=== PATIENT | female | born 1955 | race Caucasian/White ===

== ENCOUNTER → 2018-12-16 | Outpatient (CLI) | payer MEDICAID ==
[~2018-12-16] VITALS: Ht 165.1 cm; Wt 63.5 kg
--- NOTE | 2018-12-16 16:47 | Diagnostic Imaging Report ---
Indication: Right thyroid nodule. Ultrasound guidance was provided for Dr. Castellano for right thyroid mass fine needle aspiration. A total of 3 passes were made by Dr. Castellano into the large solid mass in the right lobe. Impression: Ultrasound guidance for Dr. Castellano for right thyroid mass FNA. Dictated by: Dictated on workstation # [id number]
--- NOTE | 2018-12-16 16:48 | Diagnostic Imaging Report ---
INDICATION: Thyroid nodule. Thyroid sonography is performed in the routine fashion. There is no previous study available for comparison. The right thyroid lobe measures 4.2 x 2.3 x 2.5 cm. Left thyroid lobe measures 4.0 x 1.5 x 1.5 cm. On the right side, there is a dominant nodule with heterogeneous appearance and calcifications in the inferior to mid portion of the gland measuring about 3.6 x 2.5 x 2.1 cm. There is a small hypoechoic lesion in the superior portion of the gland measuring 6 x 4 x 6 mm. On the left side, there is a small hypoechoic lesion in the thyroid lobe inferiorly near the isthmus measuring 4 x 2 mm. There is a small hypoechoic lesion in the left lobe superiorly measuring 2 x 3 mm. IMPRESSION: Dominant nodule in right thyroid lobe as described above. Small hypoechoic lesions in superior portion of right thyroid lobe as well as in the left lobe. Dictated by: Dictated on workstation # [id number]
== END ==
LOC: RAD 09:47
PROVIDERS: ATTEND Otolaryngology Otolaryngology/Facial Plastic Surgery
DX: E04.1 Nontoxic single thyroid nodule (principal)
CPT/HCPCS: 76536; 76942

== ENCOUNTER → 2019-06-28 | Outpatient (CLI) | payer MEDICAID ==
--- NOTE | 2019-06-28 11:34 | Diagnostic Imaging Report ---
PROCEDURE: US Thyroid. TECHNIQUE: Multiple real-time grayscale images were obtained of the thyroid in various projections. INDICATION: Followup of thyroid nodule on the right. History of previous fine-needle aspiration under ultrasound guidance. COMPARISON: 12/16/2018. FINDINGS: There is a heterogeneous slightly hypoechoic nodule which is lobulated involving a large portion of the right lobe of the thyroid. This measures approximately 3.8 x 2.2 x 2.5 cm. There is associated rather dense calcification centrally. There is mild hypervascularity. The right lobe measures overall 5.6 x 2.6 x 2.5 cm. The left lobe measures 4.7 x 1.5 x 1.5 cm. There is a 4 mm hypoechoic mixed-density smooth-walled lesion inferiorly near the isthmus measuring 4 x 2 mm. IMPRESSION: Complex lobulated hypoechoic mass with calcification within the right lobe of the thyroid. This has increased very slightly in size since December examination. This is considered TI-RAD 4. Short-term continued surveillance is indicated. Dictated by: Dictated on workstation # [id number]
== END ==
LOC: RAD 08:52
PROVIDERS: ATTEND Otolaryngology Otolaryngology/Facial Plastic Surgery
DX: E04.2 Nontoxic multinodular goiter (principal); Z98.890 Other specified postprocedural states
CPT/HCPCS: 76536

== ENCOUNTER → 2019-12-13 | Outpatient (CLI) | payer MEDICAID ==
--- NOTE | 2019-12-13 11:43 | Diagnostic Imaging Report ---
PROCEDURE: US Thyroid. TECHNIQUE: Multiple real-time grayscale images were obtained of the thyroid in various projections. INDICATION: Right thyroid mass. Exam compared with study 06/28/2019. Right thyroid lobe is 5.5 x 2.4 x 2.8 cm unchanged from prior. There is a heterogeneous multilobular solid vascularized mass with a few coarse calcifications and small areas of cystic degeneration relatively hypoechoic in its mid pole measuring 3.6 x 2.9 x 2.2 cm. Despite the absence of any detectable change from the previous if not already performed lesional sampling of this TI-RADS 4 level lesion recommended given its size. A 2nd smaller hypoechoic nodule in the upper pole 5 mm stable. Left lobe contains a tiny 4 mm simple cyst and measured 5.0 cm maximal unchanged. IMPRESSION: Dominant heterogeneous lobular vascularized partly calcified partly cystic but predominantly solid right lobe mass 3.6 cm maximal and a ti-RADS 4 level lesion. If not already biopsied ultrasound-guided FNA recommended. Dictated by: Dictated on workstation # [id number]
== END ==
LOC: RAD 10:59
PROVIDERS: ATTEND Otolaryngology Otolaryngology/Facial Plastic Surgery
DX: E04.1 Nontoxic single thyroid nodule (principal)
CPT/HCPCS: 76536

== ENCOUNTER → 2020-01-09 | Outpatient (CLI) | payer MEDICAID ==
[~2020-01-09] MED LIST: CATHETER FLUSH 10 ML SYR IV PRN; HOLD METFORMIN - RECEIVED CONTRAST 20 ML VIAL IV SCH; IOHEXOL 350 MG/ML 100 ML (OMNIPAQUE 350) VIAL IV ONE; NS 100 ML (IVPB) BAG IV ONE
[2020-01-09 12:31] LABS: BUN/CREATININE RATIO 11; CREATININE SERUM 0.72 MG/DL (0.60-1.30); GFR ESTIMATED > 60
--- NOTE | 2020-01-09 13:25 | Diagnostic Imaging Report ---
CLINICAL INDICATION: Patient had normal right tonsil, right-sided throat swelling x4-6 months. EXAM: Axial CT scan of the neck soft tissue performed with 75 cc Omnipaque 350 IV contrast with coronal and sagittal reformatted images. Auto Exposure Controls were utilized during the CT exam to meet ALARA standards for radiation dose reduction. COMPARISON: Ultrasound of the thyroid gland dated 12/13/2019. FINDINGS: There is enlargement of the right palatine tonsil which causes mild encroachment upon the aerodigestive tract. There is a roughly 10 mm x 7 mm (AP x Trans) lobulated low-density area within the right tonsillar region concerning for abscess. There is mild fat stranding adjacent to the right palatine tonsil. There is mild prominence of the left pontine tonsillar region which is not as prominent as compared to the right side. The hypopharynx and laryngeal soft tissue structures are unremarkable. Bilateral neck lymphadenopathy is seen with the right side worse than left. There is a marker lymph node in the right level 3 region seen on series 2, image 46, which measures 1.2 cm x 1.1 cm x 1.8 cm (AP x Trans x CC). There is also mild fat stranding adjacent to this more prominent lymph node. The bilateral salivary glands are unremarkable. There is a heterogeneous 3.3 cm nodule within the right thyroid gland which has central dystrophic appearing calcification. There is emphysematous disease involving the upper lung nielsen. There is parenchymal band appearing tissue in the anterior right lung apex which may be related to scarring. There is posterior spur involving the C4-C5 level with no significant central canal narrowing. There is severe right C4-C5 neural foramina narrowing due to uncinate spurs and facet arthropathy. Limited visualization of intracranial structures show no significant abnormality. The orbits and globes are unremarkable. Paranasal sinuses are clear. There is mild to moderate mucosal thickening involving the ethmoid sinus. There is mild mucosal thickening involving both maxillary sinuses and sphenoid sinus is seen. IMPRESSION: 1: There is right palatine tonsillitis with 10 mm right peritonsillar abscess. There is mild narrowing of the aerodigestive tract region. 2: There is cervical lymphadenopathy (right side more than the left). 3: There is a 3.3 cm heterogeneous partially calcified nodule/mass in the right thyroid gland. This is better evaluated on the comparison ultrasound of the thyroid gland. Dictated by: Dictated on workstation # [id number]
== END ==
LOC: RAD 11:58
PROVIDERS: ATTEND Otolaryngology Otolaryngology/Facial Plastic Surgery
DX: J36 Peritonsillar abscess (principal); E04.1 Nontoxic single thyroid nodule; K92.89 Other specified diseases of the digestive system; R59.0 Localized enlarged lymph nodes
CPT/HCPCS: 36415; 70491; 82565; 84520

== ENCOUNTER → 2020-02-15 | Outpatient (CLI) | payer MEDICAID ==
[~2020-02-15] VITALS: Ht 165 cm; Wt 68.0 kg
[~2020-02-15] MED LIST changes: +ALBU1.25 INH; +ALPR0.5T7 PO; +ASPI-586 PO; +CELE200C PO; +DULO20CA PO; +FLUT1BLS3 IH; -HOLD METFORMIN - RECEIVED CONTRAST 20 ML VIAL IV SCH; +HYDR-3820 PO; -IOHEXOL 350 MG/ML 100 ML (OMNIPAQUE 350) VIAL IV ONE; +IPRA4AER IH; +LORA-714 PO; +NITR0.4T39 SL; -NS 100 ML (IVPB) BAG IV ONE; +PROM25TA14 PO; +REGADENOSON 0.4 MG/5 ML SYR (LEXISCAN) IV ONE; +RT-ALBUINH IH
[2020-02-15 08:58] VITALS: BP 151/84
--- NOTE | 2020-02-15 12:47 | STRESS TEST ---
DATE OF SERVICE: 02/15/2020 LEXISCAN MYOVIEW STRESS TEST REPORT REFERRING PHYSICIAN: . Baseline heart rate is 66. Baseline blood pressure is 150/80. Baseline EKG is sinus rhythm with no ischemic changes. In summary, the patient was injected with 10.89 mCi of technetium-99 Myoview and the resting images were obtained. Then, the patient received 0.4 mg of Lexiscan followed by 29.1 mCi of technetium-99 Myoview. Throughout the test, there were no EKG changes. The resting and stress images were reviewed and compared in the short axis, horizontal long axis, and vertical long axis views. Review of the images showed breast attenuation with reversible ischemia involving the whole anterior wall extending slightly to the anterior apex and inferoapical segment. SSS is 5, SDS 5. TID value 0.93. On the gated images, the left ventricle appeared to be normal size with normal contractility. Calculated ejection fraction 58%. CONCLUSION: 1. The patient tolerated Lexiscan well. 2. Breast attenuation with reversible ischemia involving the whole anterior wall, anterior apex, true apex and inferoapical segment. 3. Normal left ventricular size with normal contractility. Calculated ejection fraction 58%. Job ID: [id number] DocumentID: [id number] Dictated Date: 02/15/2020 11:23:06 Talent Coordinator Date: 02/15/2020 12:46:10 Dictated By: ROGER PRINCE MD
== END ==
LOC: CARD 07:09
PROVIDERS: ATTEND Internal Medicine Cardiovascular Disease
DX: E78.2 Mixed hyperlipidemia (principal); I25.10 Atherosclerotic heart disease of native coronary artery without angina pectoris; I10 Essential (primary) hypertension; Z72.0 Tobacco use
CPT/HCPCS: 78452; 93017; 93306

== ENCOUNTER 2020-02-20 08:54 | Outpatient (RCR) | payer MEDICAID ==
[2020-02-13 12:18] VITALS: BP 137/87
[2020-02-13 12:44] LABS: BASOPHILS % (AUTO) 0 % (0-10); EOSINOPHILS # (AUTO) 0.2 10^3/uL (0.0-0.3); EOSINOPHILS % (AUTO) 3 % (0-10); HEMATOCRIT 43 % (35-52); HEMOGLOBIN 14.5 G/DL (11.5-16.0); LYMPHOCYTES # (AUTO) 3.2 X 10^3 (1.0-4.0); LYMPHOCYTES % (AUTO) 43 % (12-44); MEAN CORPUSCULAR HEMOGLOBIN 31 PG (25-34); MEAN CORPUSCULAR HGB CONC 34 G/DL (32-36); MEAN CORPUSCULAR VOLUME 89 FL (80-99); MEAN PLATELET VOLUME 9.5 FL (7.4-10.4); MONOCYTES # (AUTO) 0.5 X 10^3 (0.0-1.0); MONOCYTES % (AUTO) 7 % (0-12); NEUTROPHILS # (AUTO) 3.5 X 10^3 (1.8-7.8); NEUTROPHILS % (AUTO) 47 % (42-75); PLATELET COUNT 272 10^3/uL (130-400); WHITE BLOOD COUNT 7.5 10^3/uL (4.3-11.0)
--- NOTE | 2020-02-13 12:51 | Diagnostic Imaging Report ---
INDICATION: Right tonsillar abscess. EXAMINATION: PA and lateral chest. FINDINGS: The heart size and pulmonary vascularity are normal. There are no infiltrates, effusions, or pneumothoraces. IMPRESSION: No acute abnormalities in the chest. Dictated by: Dictated on workstation # [id number]
[2020-02-13 13:01] LABS: BUN/CREATININE RATIO 10; CALCIUM 9.1 MG/DL (8.5-10.1); CARBON DIOXIDE 25 MMOL/L (21-32); CHLORIDE 105 MMOL/L (98-107); GFR ESTIMATED > 60; GLUCOSE 104 MG/DL (70-105); POTASSIUM 4.3 MMOL/L (3.6-5.0); SODIUM 140 MMOL/L (135-145)
[~2020-02-20] VITALS: Ht 165 cm; Wt 68.6 kg
[~2020-02-20 08:54] MED LIST changes: -CATHETER FLUSH 10 ML SYR IV PRN; -REGADENOSON 0.4 MG/5 ML SYR (LEXISCAN) IV ONE
== END 2020-02-20 16:17 | disposition home or self-care (01) ==
LOC: PREOP 08:54
PROVIDERS: ATTEND Otolaryngology Otolaryngology/Facial Plastic Surgery
DX: Z01.818 Encounter for other preprocedural examination (principal); Z01.812 Encounter for preprocedural laboratory examination; J36 Peritonsillar abscess; Z11.59 Encounter for screening for other viral diseases
CPT/HCPCS: 36415; 71046; 80048; 85025; 87081; 87635; 93005

== ENCOUNTER 2020-02-24 08:33 | Day surgery (SDC) | payer MEDICAID ==
[~2020-02-24] VITALS: Ht 165 cm; Wt 68.0 kg
[2020-02-24] VITALS (13 sets, daily range): BP systolic 118–157; BP diastolic 71–108
[2020-02-24] MEDS ORDERED: LACTATED RINGERS 1,000 ML IV PRN (08:58)
--- OUTSIDE RECORDS SUMMARY | 2020-02-24 09:12 | XMS REPORT ---
Author Author Adriane LAWSONWELL [facility] [place] [facility] Address [address] [place] [address] Care Team Providers Care Program Coordinator Name Role Phone DAVID LAWSON Unavailable PROBLEMS Type Condition ICD9-CM Code [id number] Code Onset Dates Condition S tatus SNOMED Code Problem Tobacco use disorder F17.200 Active 012773071 Problem Irritable bowel syndrome K58.9 Activ e 24258465 Problem Back pain, chronic M54.9 Active 1 05432169 Problem Hyperglycemia R73.9 May, Active 803 54855 Problem Hyperlipidemia, mixed E78.2 Active 872373351 Problem Extrinsic asthma J45.909 Active 555 17402 Problem CAD (coronary artery disease) I25.10 Active 43085501 Problem COPD (chronic obstructive pulmonary disease) J44.9 Active 80054996 Problem Tobacco abuse Z72.0 Active 108035 05 Problem Panlobular emphysema J43.1 Active 6689635 Problem Nausea alone R11.0 Active 0992629 07 Problem Migraine with aura and without status migrainosu s, not intractable G43.109 Active 4958467 Problem Anxiety F41.9 Active 29309406 Problem Mixed hyperlipidemia E78.2 Active 045029292 Problem Depression F32.9 Active 463425370 Problem Cigarette nicotine dependence F17.200 Active 934813361 Problem Irritable bowel K58.9 Active 1074 3008 Problem CA, old I25.2 Active 0923792 Problem Acid reflux K21.9 Active 81080600 2 ALLERGIES No Information ENCOUNTERS Encounter Location Date Diagnosis [facility] [id number] [place] [address] 07 Nov, 2019 Osteoarthritis M19.90 [facility] [id number] [place] [address] Oct, [facility] [address] [facility] [place] [address] Oct, [facility] [address] [place] [address] Sep, [facility] [address] [place] [address] Sep, [facility] [place] [address] [facility] [id number] [address] Aug, COPD (chronic obstructive pulmonary disease) J44.9 [facility] [address] [place] [address] Aug, Mixed hyperlipidemia E78.2 a nd Hyperglycemia R73.9 [facility] [address] [place] [address] Aug, COPD (chronic obstructive pu lmonary disease) J44.9 ; CAD (coronary artery disease) I25.10 ; Hyperglycemia R73.9 and Encounter for immunization Z23 [facility] [place] [address] [place] [address] Aug, Hyperglycemia R73.9 and Mixe d hyperlipidemia E78.2 [facility] [address] [place] [address] Aug, [address] [place] [address] Jul, [facility] [address] [place] [address] Jul, [address] [place] [address] Jun, [address] [place] [address] Jun, [address] [place] [address] Jun, Screening mammogram, encount er for Z12.31 [facility] [address] [place] [address] Jun, [facility] [place] [address] [place] [address] May, [facility] [place] [address] [place] [address] May, [facility] [place] [address] [place] [address] Apr, [facility] [place] [address] [place] [address] Apr, Screening mammogram, encount er for Z12.31 ; Anxiety F41.9 ; Panlobular emphysema J43.1 ; Migraine with aura and without status migrainosus, not intractable G43.109 and Mixed hyperlipidemia E78.2 [facility] [place] [address] [place] [address] Apr, [facility] [place] [address] [place] [address] Mar, [facility] [place] [address] [place] [address] Mar, [facility] [place] [address] [place] [address] February, [facility] [place] [address] [place] [address] February, [facility] [place] [address] [place] [address] February, [facility] [place] [address] [place] [address] February, [facility] [place] [address] [place] [address] Jan, [facility] [place] [address] [place] [address] Jan, [facility] [address] [place] [address] Dec, [facility] [place] [address] [place] [address] Dec, [facility] [place] [address] [place] [address] Dec, Hyperglycemia R73.9 ; COPD ( chronic obstructive pulmonary disease) J44.9 and Osteoarthritis M19.90 [facility] [place] [address] [place] [address] Dec, [facility] [place] [address] [place] [address] Dec, [facility] [place] [address] [place] [address] Dec, [facility] [place] [address] [place] [address] Dec, [facility] [place] [address] [place] [address] Dec, [facility] [place] [address] [place] [address] Nov, [facility] [place] [address] [place] [address] Nov, [facility] [place] [address] [place] [address] Nov, [facility] [address] [facility] [place] [address] Oct, [facility] [id number] [place] [address] Oct, [facility] [id number] [place] [address] Oct, [facility] [id number] [place] [address] Sep, [facility] [id number] [place] [address] Aug, IMMUNIZATIONS No Known Immunizations SOCIAL HISTORY Never Assessed REASON FOR VISIT med refill PLAN OF CARE VITAL SIGNS MEDICATIONS Medication Instructions Dosage Frequency Start Date End Date Duration S tatus Xanax 0.5 MG Orally Twice a day 1 tablet 12h 26 Nov, 2018 30 days Active RESULTS No Results PROCEDURES No Known procedures INSTRUCTIONS MEDICATIONS ADMINISTERED No Known Medications MEDICAL (GENERAL) HISTORY Type Description Date Medical History Extrinsic asthma Medical History COPD (chronic obstructive pulmonary dise ase) Medical History Back pain, chronic Medical History Anxiety Medical History Tobacco abuse Medical History Cigarette nicotine dependence Medical History Depression Medical History Nausea alone Medical History Acid reflux Medical History Irritable bowel Medical History CA, old Medical History CAD (coronary artery disease) Medical History Panlobular emphysema Medical History Hyperlipidemia, mixed Medical History Osteoarthritis Surgical History cholecystectomy Surgical History hysterectomy Surgical History lung resection Surgical History cardiac stent Surgical History hernia repair
--- OUTSIDE RECORDS SUMMARY | 2020-02-24 09:12 | XMS REPORT ---
Author Author Adriane LAWSONWELL Organization [facility] Address [address] [place] [address] Care Team Providers Care Railway Station Manager Name Role Phone DAVID LAWSON Unavailable PROBLEMS Type Condition ICD9-CM Code [id number] Code Onset Dates Condition S tatus SNOMED Code Problem Irritable bowel syndrome K58.9 Activ e 95855619 Problem Hyperglycemia R73.9 May, Active 803 78568 Problem Mixed hyperlipidemia E78.2 Aug, Active 326291754 Problem Anxiety state F41.1 Active 011707 003 Problem Chest pain R07.9 Mar, Active 729091 09 Problem History of myocardial infarction I25.2 Jun, Active 121732382 Problem Esophageal reflux K21.9 Active 24 8559826 Problem COPD (chronic obstructive pulmonary disease) J44.9 Active 35900770 Problem Osteoarthritis M19.90 Active 89891 5006 Problem Situational depression F43.21 Active 21616144 Problem Radicular pain of right lower extremity M54.10 Mar, Active 79572543 Problem Back pain, chronic M54.9 Active 1 14499827 Problem Extrinsic asthma, unspecified J45.909 Active 773409076 Problem Extrinsic asthma J45.909 Active 555 94072 Problem Irritable bowel K58.9 Active 1074 3008 Problem Cigarette nicotine dependence F17.200 Active 195311874 Problem Nausea alone R11.0 Active 2791957 07 Problem CAD (coronary artery disease) I25.10 Active 79580465 Problem Depression F32.9 Active 64488010 Problem Anxiety F41.9 Active 19705434 Problem [place], old I25.2 Active 8902954 Problem Osteoarthritis of multiple joints M15.9 Jan Active 930216777 Problem Migraine with aura and without status migrainosu s, not intractable G43.109 Active 3915522 Problem Tobacco use disorder F17.200 Active 746317368 Problem Backache M54.9 Active 047096923 Problem Tobacco abuse Z72.0 Active 522615 05 Problem Panlobular emphysema J43.1 Active 1156067 Problem Acid reflux K21.9 Active 86985927 2 Problem Hyperlipidemia, mixed E78.2 Active 208788787 ALLERGIES Substance Reaction Event Type Date Status PredniSONE rash Drug Allergy Dec, Active Gatifloxacin unknown Drug Allergy Dec, Active Fluticasone-Salmeterol nausea and vomiting Drug Allergy Dec, 9 Active Crestor nausea and vomiting Drug Allergy Dec, Active Lovastatin nausea and vomiting Drug Allergy Dec, Active Lipitor nausea and vomiting Drug Allergy Dec, Active Lexapro unknown Drug Allergy Dec, Active Keflex unknown Drug Allergy Dec, Active Penicillin G Potassium rash Drug Allergy Dec, Activ e Butrans nausea and vomiting Drug Allergy Dec, Active Olanzapine-Fluoxetine HCl unknown Drug Allergy Dec, Ac tive Wellbutrin headache Drug Allergy Dec, Active Propoxyphene Y-YHRA-Opgfixx Pr unknown Drug Allergy Dec, 19 Active Vantin rash Drug Allergy Dec, Active Venlafaxine HCl headache Drug Allergy Dec, Active ENCOUNTERS Encounter Location Date Diagnosis [address] [address] Aug, [address] [address] Apr, [address] [address] Apr, Screening mammogram, encounter for Z12.3 1 ; Anxiety F41.9 ; Panlobular emphysema J43.1 ; Migraine with aura and without status migrainosus, not intractable G43.109 and Mixed hyperlipidemia E78.[address] [address] Apr, [address] [address] Mar, [address] [address] Mar, [address] [address] February, [address] [place] [address] February, [facility] [address] [place] [address] February, [facility] [address] [place] [address] February, [facility] [address] [place] [address] Jan, [facility] [address] [place] [address] Jan, [facility] [address] [facility] [id number] [address] [place] [address] Dec, [facility] [address] [place] [address] Dec, [facility] [address] [place] [address] Dec, Hyperglycemia R73.9 ; COPD (chronic obst ructive pulmonary disease) J44.9 and Osteoarthritis M19.90 [facility] [address] [place] [address] Dec, [facility] [address] [place] [address] Dec, [facility] [address] [place] [address] Dec, [facility] [address] [address] Dec, [facility] [address] [address] Dec, [facility] [address] [address] Nov, [facility] [address] [place] [address] Nov, [facility] [address] [address] Nov, [facility] [address] [facility] [id number] [address] [place] [address] Oct, [facility] [address] [facility] [id number] [address] [place] [address] Oct, [facility] [address] [facility] [id number] [address] [place] [address] Oct, [facility] [address] [facility] [id number] [address] [place] [address] Sep, [facility] [address] [facility] [id number] [address] [place] [address] Aug, IMMUNIZATIONS No Known Immunizations SOCIAL HISTORY Never Assessed REASON FOR VISIT Pain management (chronic) PLAN OF CARE Activity Details Follow Up 4 Months Reason:labs and vis it VITAL SIGNS Height 5'4.5" in 2018-12-24 Weight 149 lbs 2018-12-24 BMI 25.18 kg/m2 2018-12-24 Blood pressure systolic 122 mmHg 2018-12-24 Blood pressure diastolic 74 mmHg 2018-12-24 MEDICATIONS Medication Instructions Dosage Frequency Start Date End Date Duration S tatus Xanax 0.5 MG Orally Twice a day 1 tablet 12h Nov, 30 days Active Protonix 40 MG Orally Once a day 1 tablet 24h Nov, 3 0 day(s) Active Nitroglycerin 0.4 MG Sublingual every 5 mins as needed x3 as directed 30 days Active Celebrex 200 MG Orally Once a day 1 capsule with food 24h Dec 90 days Active Nebulizer - as directed Active Cymbalta 30 MG Orally Once a day 1 capsule 24h 30 da y(s) Active ProAir HFA 108 (90 Base) MCG/ACT INHALE 2 PUFFS BY MOUTH EVERY 4 HOURS NEEDED FOR SHORTNESS OF BREATH 30 days Active Loratadine 10 MG Orally Once a day 1 tablet 24h 11 Dec, 2018 30 day(s) Active Promethazine HCl 25 MG Orally every 12 hrs 1 tablet as needed 12h 30 day(s) Active Livalo 4 MG Orally Once a day 1 tablet 24h 14 Dec, 2018 30 d ay(s) Active Trelegy Ellipta 100-62.5-25 MCG/INH Inhalation Once a day 1 puff 24 h 30 days Active Albuterol Sulfate (2.5 MG/3ML) 0.083% Inhalation Three times a day 3 ml as needed 8h Active Hydrocodone-Acetaminophen 10-325 MG Orally every 8 hrs prn 1 /2-1 tablet as needed MAX 3 per day Dec, 28 days Active RESULTS No Results PROCEDURES Procedure Date Ordered Result Body Site VENIPUNCT, ROUTINE* December 24, 2018 LAB NOT BILLED BY [facility] December 24, 2018 Hemoglobin Test Send Out 0 dollar December 24, 2018 INSTRUCTIONS MEDICATIONS ADMINISTERED No Known Medications MEDICAL (GENERAL) HISTORY Type Description Date Medical History Extrinsic asthma Medical History COPD (chronic obstructive pulmonary dise ase) Medical History Back pain, chronic Medical History Anxiety Medical History Tobacco abuse Medical History Cigarette nicotine dependence Medical History Depression Medical History Nausea alone Medical History Acid reflux Medical History Irritable bowel Medical History [place], old Medical History CAD (coronary artery disease) Medical History Panlobular emphysema Medical History Hyperlipidemia, mixed Medical History Osteoarthritis Surgical History cholecystectomy Surgical History hysterectomy Surgical History lung resection Surgical History cardiac stent Surgical History hernia repair
--- OUTSIDE RECORDS SUMMARY | 2020-02-24 09:12 | XMS REPORT | Continuity of Care Document ---
Demographics Preferred Language Unknown Marital Status Unknown Orthodox Affiliation Unknown Race Unknown Ethnic Group Unknown Author Organization Unknown Address Unknown Phone Unavailable Allergies Active Description Code Type Severity Reaction Onset Reported/Identified Relationship to Patient Clinical Status Yes No Allergy Information Available [id number] Drug Allergy Unknown N/A 020 Yes Penicillins [id number] Drug Aller gy Severe ANAPHYLAXIS, [place] 02/13/2020 Medications There is no data. Problems Date Dx Coded Attending Type Code Diagnosis Diagnosed By 09/10/1616 GRICELDA RODGERS MD, Ot J36 PERITONSILLAR ABSCESS 09/10/1616 GRICELDA RODGERS MD Ot Z01.812 ENCOUNTER FOR PREPROCEDURAL LABORATORY E 09/10/1616 GRICELDA RODGERS MD, Ot Z01.818 ENCOUNTER FOR OTHER PREPROCEDURAL EXAMIN 09/10/1616 GRICELDA RODGERS MD Ot Z11.59 ENCOUNTER FOR SCREENING FOR OTHER VIRAL 12/24/2018 GRICELDA RODGERS MD Ot E04 .1 NONTOXIC SINGLE THYROID NODULE 01/04/2019 GRICELDA RODGERS MD Ot E04 .1 NONTOXIC SINGLE THYROID NODULE 06/28/2019 GRICELDA RODGERS MD Ot E04 .1 NONTOXIC SINGLE THYROID NODULE 01/11/2020 GRICELDA RODGERS MD Ot E04 .1 NONTOXIC SINGLE THYROID NODULE 01/11/2020 GRICELDA RODGERS MD Ot J36 PERITONSILLAR ABSCESS 01/11/2020 GRICELDA RODGERS MD Ot K92.89 OTHER SPECIFIED DISEASES OF THE DIGESTIV 01/11/2020 GRICELDA RODGERS MD Ot R59 .0 LOCALIZED ENLARGED LYMPH NODES 01/13/2020 GRICELDA RODGERS MD Ot E04 .1 NONTOXIC SINGLE THYROID NODULE 01/13/2020 GRICELDA RODGERS MD Ot J36 PERITONSILLAR ABSCESS 01/13/2020 GRICELDA RODGERS MD Ot K92.89 OTHER SPECIFIED DISEASES OF THE DIGESTIV 01/13/2020 GRICELDA RODGERS MD Ot R59 .0 LOCALIZED ENLARGED LYMPH NODES 02/16/2020 ROGER PRINCE MD Ot E78. 2 MIXED HYPERLIPIDEMIA 02/16/2020 ROGER PRINCE MD Ot I10 ESSENTIAL (PRIMARY) HYPERTENSION 02/16/2020 NIKI MD, BASHAR J Ot I25. 10 ATHSCL HEART DISEASE OF [place] CORONARY 02/16/2020 NIKI NAYLOR, ROGER Alvarado Ot Z72. 0 TOBACCO USE 02/17/2020 VISHAL NAYLOR, GRICELDA Velazquez Ot J36 PERITONSILLAR ABSCESS 02/17/2020 VISHAL NAYLOR, GRICELDA Velazquez Ot Z01.812 ENCOUNTER FOR PREPROCEDURAL LABORATORY E 02/17/2020 VISHAL NAYLOR, GRICELDA Velazquez Ot Z01.818 ENCOUNTER FOR OTHER PREPROCEDURAL EXAMIN Procedures There is no data. Results Test Result Range Test Code Change - 10/20/18 13:59 Test Code Change Note Aerobic Bacterial Culture - 10/20/18 13: 59 Aerobic Bacterial Culture Note LIPID PANEL - 12/24/18 15:33 CHOLESTEROL, TOTAL 206 mg/dL <200 HDL CHOLESTEROL 48 mg/dL >50 TRIGLYCERIDES 186 mg/dL <150 LDL-CHOLESTEROL 128 mg/dL (calc) NRG CHOL/HDLC RATIO 4.3 (calc) <5.0 NON HDL CHOLESTEROL 158 mg/dL (calc) <13 0 CMP - 12/24/18 15:33 GLUCOSE 91 mg/dL 65-99 UREA NITROGEN (BUN) 7 mg/dL 7-25 CREATININE 0.55 mg/dL 0.50-0.99 eGFR NON-AFR. CITIZEN OF [place] 101 mL/min/1.73m2 > OR = 60 eGFR 117 mL/min/1.73m2 > OR = 60 BUN/CREATININE RATIO NOT APPLICABLE (calc) 6-22 SODIUM 142 mmol/L 135-146 POTASSIUM 4.2 mmol/L 3.5-5.3 CHLORIDE 107 mmol/L 98-110 CARBON DIOXIDE 32 mmol/L 20-32 CALCIUM 9.4 mg/dL 8.6-10.4 PROTEIN, TOTAL 6.8 g/dL 6.1-8.1 ALBUMIN 4.3 g/dL 3.6-5.1 GLOBULIN 2.5 g/dL (calc) 1.9-3.7 ALBUMIN/GLOBULIN RATIO 1.7 (calc) 1.0-2. 5 BILIRUBIN, TOTAL 0.4 mg/dL 0.2-1.2 ALKALINE PHOSPHATASE 65 U/L 33-130 AST 11 U/L 10-35 ALT 6 U/L 6-29 CBC w/MANUAL DIFF - 12/24/18 15:33 WHITE BLOOD CELL COUNT 8.3 Thousand/uL 3 .8-10.8 RED BLOOD CELL COUNT 4.70 Million/uL 3.8 0-5.10 HEMOGLOBIN 14.4 g/dL 11.7-15.5 HEMATOCRIT 43.9 % 35.0-45.0 MCV 93.4 fL 80.0-100.0 MCH 30.6 pg 27.0-33.0 MCHC 32.8 g/dL 32.0-36.0 RDW 13.0 % 11.0-15.0 PLATELET COUNT 291 Thousand/uL 140-400 MPV 10.4 fL 7.5-12.5 ABSOLUTE NEUTROPHILS 2847 cells/uL 1500- 7800 ABSOLUTE MONOCYTES 506 cells/uL 200-950 ABSOLUTE EOSINOPHILS 332 cells/uL 15-500 ABSOLUTE BASOPHILS 0 cells/uL 0-200 NEUTROPHILS 34.3 % NRG LYMPHOCYTES 55.6 % NRG MONOCYTES 6.1 % NRG EOSINOPHILS 4.0 % NRG BASOPHILS 0 % NRG ABSOLUTE LYMPHOCYTES 4615 cells/uL 850-3 900 PLATELET ESTIMATION ADEQUATE ADEQUATE COMMENT(S) NRG A1C - 12/24/18 15:33 HEMOGLOBIN A1c 5.1 % of total Hgb <5.7 CBC - 04/26/19 14:18 WHITE BLOOD CELL COUNT 9.0 Thousand/uL 3 .8-10.8 RED BLOOD CELL COUNT 4.90 Million/uL 3.8 0-5.10 HEMOGLOBIN 14.9 g/dL 11.7-15.5 HEMATOCRIT 45.5 % 35.0-45.0 MCV 92.9 fL 80.0-100.0 MCH 30.4 pg 27.0-33.0 MCHC 32.7 g/dL 32.0-36.0 RDW 13.2 % 11.0-15.0 PLATELET COUNT 272 Thousand/uL 140-400 MPV 9.9 fL 7.5-12.5 ABSOLUTE NEUTROPHILS 4716 cells/uL 1500- 7800 ABSOLUTE LYMPHOCYTES 3492 cells/uL 850-3 900 ABSOLUTE MONOCYTES 540 cells/uL 200-950 ABSOLUTE EOSINOPHILS 189 cells/uL 15-500 ABSOLUTE BASOPHILS 63 cells/uL 0-200 NEUTROPHILS 52.4 % NRG LYMPHOCYTES 38.8 % NRG MONOCYTES 6.0 % NRG EOSINOPHILS 2.1 % NRG BASOPHILS 0.7 % NRG CMP - 08/29/19 10:10 GLUCOSE 102 mg/dL 65-99 UREA NITROGEN (BUN) 10 mg/dL 7-25 CREATININE 0.59 mg/dL 0.50-0.99 eGFR NON-AFR. CITIZEN OF [place] 98 mL/min/1.73m2 > OR = 60 eGFR 113 mL/min/1.73m2 > OR = 60 BUN/CREATININE RATIO NOT APPLICABLE (calc) 6-22 SODIUM 140 mmol/L 135-146 POTASSIUM 4.3 mmol/L 3.5-5.3 CHLORIDE 103 mmol/L 98-110 CARBON DIOXIDE 29 mmol/L 20-32 CALCIUM 9.4 mg/dL 8.6-10.4 PROTEIN, TOTAL 6.9 g/dL 6.1-8.1 ALBUMIN 4.0 g/dL 3.6-5.1 GLOBULIN 2.9 g/dL (calc) 1.9-3.7 ALBUMIN/GLOBULIN RATIO 1.4 (calc) 1.0-2. 5 BILIRUBIN, TOTAL 0.5 mg/dL 0.2-1.2 ALKALINE PHOSPHATASE 67 U/L 33-130 AST 12 U/L 10-35 ALT 6 U/L 6-29 [id number] - 01/09/20 12:10 Serum or plasma urea nitrogen measurement (mass/volume ) 8 mg/dL 7-18 Serum or plasma creatinine measurement (mass/volume) 0.72 mg/dL 0.60-1.30 Serum or plasma urea nitrogen/creatinine mass ratio 11 NRG Serum or plasma creatinine measurement w ith calculation of estimated glomerular filtration rate > [facility] - 02/10/20 10:36 GLUCOSE 88 mg/dL 65-99 UREA NITROGEN (BUN) 8 mg/dL 7-25 CREATININE 0.71 mg/dL 0.50-0.99 eGFR NON-AFR. CITIZEN OF [place] 91 mL/min/1.73m2 > OR = 60 eGFR 105 mL/min/1.73m2 > OR = 60 BUN/CREATININE RATIO NOT APPLICABLE (calc) 6-22 SODIUM 144 mmol/L 135-146 POTASSIUM 4.5 mmol/L 3.5-5.3 CHLORIDE 107 mmol/L 98-110 CARBON DIOXIDE 28 mmol/L 20-32 CALCIUM 9.4 mg/dL 8.6-10.4 PROTEIN, TOTAL 7.2 g/dL 6.1-8.1 ALBUMIN 4.3 g/dL 3.6-5.1 GLOBULIN 2.9 g/dL (calc) 1.9-3.7 ALBUMIN/GLOBULIN RATIO 1.5 (calc) 1.0-2. 5 BILIRUBIN, TOTAL 0.6 mg/dL 0.2-1.2 ALKALINE PHOSPHATASE 67 U/L 37-153 AST 12 U/L 10-35 ALT 6 U/L 6-29 Complete blood count (CBC) with automate d white blood cell (WBC) differential - 02/13/20 12:35 Blood leukocytes automated count (number/volume) 7.5 10*3/uL 4.3-11.0 Blood erythrocytes automated count (number/volume) 4.76 10*6/uL 4.35-5.85 Venous blood hemoglobin measurement (mass/volume) 14.5 g/dL 11.5-16.0 Blood hematocrit (volume fraction) 43 % 35-52 Automated erythrocyte mean corpuscular volume 89 [ foz_us] 80-99 Automated erythrocyte mean corpuscular h emoglobin (mass per erythrocyte) 31 pg 25-34 Automated erythrocyte mean corpuscular h emoglobin concentration measurement (mass/volume) 34 g/dL 32-36 Automated erythrocyte distribution width ratio 14. 0 % 10.0- 14.5 Automated blood platelet count (count/volume) 272 10*3/uL 130-400 Automated blood platelet mean volume measurement 9.5 [foz_us] 7.4-10.4 Automated blood neutrophils/100 leukocytes 47 % 42-75 Automated blood lymphocytes/100 leukocytes 43 % 12-44 Blood monocytes/100 leukocytes 7 % 0-12 Automated blood eosinophils/100 leukocytes 3 % 0-10 Automated blood basophils/100 leukocytes 0 % 0-10 Blood neutrophils automated count (number/volume) 3.5 10*3 1.8-7.8 Blood lymphocytes automated count (number/volume) 3.2 10*3 1.0-4.0 Blood monocytes automated count (number/volume) 0. 5 10*3 0.0-1.0 Automated eosinophil count 0.2 10*3/uL 0 .0-0.3 Automated blood basophil count (count/volume) 0.0 10*3/uL 0.0-0.1 Whole blood basic metabolic panel - 01/29 12:35 Serum or plasma sodium measurement (moles/volume) 140 mmol/L 135-145 Serum or plasma potassium measurement (moles/volume) 4.3 mmol/L 3.6-5.0 Serum or plasma chloride measurement (moles/volume) 105 mmol/L 98-107 Carbon dioxide 25 mmol/L 21-32 Serum or plasma anion gap determination (moles/volume) 10 mmol/L 5-14 Serum or plasma urea nitrogen measurement (mass/volume ) 7 mg/dL 7-18 Serum or plasma creatinine measurement (mass/volume) 0.70 mg/dL 0.60-1.30 Serum or plasma urea nitrogen/creatinine mass ratio 10 NRG Serum or plasma creatinine measurement w ith calculation of estimated glomerular filtration rate > NRG Serum or plasma glucose measurement (mass/volume) 104 mg/dL 70-105 Serum or plasma calcium measurement (mass/volume) 9.1 mg/dL 8.5-10.1 Methicillin resistant Staphylococcus aur eus (MRSA) screening culture - 02/13/20 12:35 Methicillin resistant Staphylococcus aureus (MRSA) scr eening culture NEG NRG Coronavirus SARS-CoV-2 SO 2018 - 0 14:28 Coronavirus Ab [Units/volume] in Serum Negative Negative Encounters ACCT No. Visit Date/Time Discharge Status Pt. Type Provider Facility Loc./Unit Complaint [id number] 10/26/2018 13:19:00 Document Registration [id number] 02/20/2020 08:54:00 16:17:00 DIS Outpatient GRICELDA RODGERS MD Via [facility] PREOP RIGHT TONSILLAR ABSCESS [id number] 02/15/2020 07:09:00 23:59:59 CLS Outpatient ROGER PRINCE MD [facility] CARD HYPERLIPIDEMIA,CAD,HTN, TOBACCO USER [id number] 02/13/2020 16:00:00 23:59:59 CLS Preadmit GRICELDA RODGERS MD [facility] RT COPD [id number] 01/09/2020 11:58:00 23:59:59 CLS Outpatient GRICELDA RODGERS MD [facility] RAD ABN RT TONSIL,RT THROAT PAIN [id number] 12/13/2019 10:59:00 23:59:59 CLS Outpatient GRICELDA RODGERS MD [facility] RAD RIGHT THYROID NODULE [id number] 06/28/2019 08:52:00 23:59:59 CLS Outpatient VISHAL NAYLOR, GRICELDA Velazquez [facility] RAD THYROID NODULES [id number] 12/16/2018 09:47:00 23:59:59 CLS Outpatient GRICELDA RODGERS MD [facility] RAD THYROID NODULE [id number] 10/18/2018 11:13:00 23:59:59 CLS Preadmit DAVID LAWSON MD [facility] RAD CANCER SCREENING [id number] 02/24/2020 07:30:00 P EN Preadmit GRICELDA RODGERS MD [facility] SDC RIGHT TONSILLAR ABSCESS [id number] 08/29/2019 10:00:00 08/29/2019 23:59: 59 SRIDHAR Outpatient DAVID LAWSON [facility] [id number] 02/10/2020 10:15:00 Document Registration [id number] 08/29/2019 09:45:00 Document Registration [id number] 04/26/2019 13:45:00 Document Registration [id number] 12/24/2018 16:15:00 Document Registration
--- OUTSIDE RECORDS SUMMARY | 2020-02-24 09:12 | XMS REPORT ---
Author Author Adriane LAWSONWELL [facility] Address [address] [place] [address] Care Team Providers Care Rental Boats Caretaker Name Role Phone DAVID LAWSON Unavailable PROBLEMS Type Condition ICD9-CM Code CXL52-BH Code Onset Dates Condition S tatus SNOMED Code Problem Tobacco use disorder F17.200 Active 379364171 Problem Irritable bowel syndrome K58.9 Activ e 67818810 Problem Back pain, chronic M54.9 Active 1 46085277 Problem Hyperglycemia R73.9 May, Active 803 87718 Problem Hyperlipidemia, mixed E78.2 Active 888408267 Problem Extrinsic asthma J45.909 Active 555 21382 Problem CAD (coronary artery disease) I25.10 Active 94843849 Problem COPD (chronic obstructive pulmonary disease) J44.9 Active 49285704 Problem Tobacco abuse Z72.0 Active 689711 05 Problem Panlobular emphysema J43.1 Active 4076063 Problem Nausea alone R11.0 Active 1486882 07 Problem Migraine with aura and without status migrainosu s, not intractable G43.109 Active 9983840 Problem Anxiety F41.9 Active 76835491 Problem Mixed hyperlipidemia E78.2 Active 400442981 Problem Depression F32.9 Active 296769717 Problem Cigarette nicotine dependence F17.200 Active 617659744 Problem Irritable bowel K58.9 Active 1074 3008 Problem [place], old I25.2 Active 1226253 Problem Acid reflux K21.9 Active 49088156 2 ALLERGIES No Information ENCOUNTERS Encounter Location Date Diagnosis [address] [id number] [address] 31 Dec, [address] [id number], [place] [address] 06 Dec, 2019 [facility] [address] [facility] [id number] [place] [address] Dec, [facility] [address] [facility] [id number] [place] [address] Nov, Osteoarthritis M19.90 [facility] [address] [facility] [id number] [place] [address] Oct, [facility] [address] [id number] [place] [address] Oct, [facility] [address] [id number] [place] [address] Sep, [facility] [address] [id number], [place] [address] Sep, [facility] [place] [address] [facility] [id number] [place] [address] Aug, COPD (chronic obstructive pulmonary disease) J44.9 [facility] [address] [id number], [place] [address] Aug, Mixed hyperlipidemia E78.2 a nd Hyperglycemia R73.9 [facility] [address] [id number], [place] [address] Aug, COPD (chronic obstructive pu lmonary disease) J44.9 ; CAD (coronary artery disease) I25.10 ; Hyperglycemia R73.9 and Encounter for immunization Z23 [facility] [address] [id number], [place] [address] Aug, Hyperglycemia R73.9 and Mixe d hyperlipidemia E78.2 [facility] [address] [id number], [place] [address] Aug, [facility] [address] [id number], [place] [address] Jul, [facility] [address] [id number] [place] [address] Jul, [facility] [address] [id number], [place] [address] Jun, [facility] [address] [id number] [place] [address] Jun, [facility] [address] [id number] [place] [address] Jun, Screening mammogram, encount er for Z12.31 [facility] [address] [id number] [place] [address] Jun, [facility] [address] [id number] [place] [address] May, [facility] [address] [id number] [place] [address] May, [facility] [address] [id number] [place] [address] Apr, [facility] [address] [id number] [place] [address] Apr, Screening mammogram, encount er for Z12.31 ; Anxiety F41.9 ; Panlobular emphysema J43.1 ; Migraine with aura and without status migrainosus, not intractable G43.109 and Mixed hyperlipidemia E78.2 [facility] [address] [id number] [place] [address] Apr, [facility] [address] [id number] [place] [address] Mar, [facility] [address] [id number] [place] [address] Mar, [facility] [address] [id number] [place] [address] February, [facility] [address] [id number] [place] [address] February, [facility] [address] [id number] [place] [address] February, [facility] [address] [id number] [place] [address] February, [facility] [place] [address] [id number] [place] [address] Jan, [facility] [place] [address] [id number] [place] [address] Jan, [facility] [address] [id number] [address] [address] Dec, [facility] [place] [address] [address] [place], [place] [address] [address] [id number] [place] [address] Dec, [facility] [place] [address] [id number] [place] [address] Dec, Hyperglycemia R73.9 ; COPD ( chronic obstructive pulmonary disease) J44.9 and Osteoarthritis M19.90 [facility] [place] [address] [id number] [place] [address] Dec, [facility] [place] [address] [id number] [place] [address] Dec, [facility] [place] [address] [id number] [place] [address] Dec, [facility] [place] [address] [id number] [place] [address] Dec, [facility] [place] [address] [id number] [place] [address] Dec, [facility] [place] [address] [id number] [place] [address] Nov, [facility] [place] [address] [id number] [place] [address] Nov, [facility] [place] [address] [id number] [place] [address] Nov, [facility] [address] [id number] [address] [address] Oct, [facility] [place] [address] [facility] [id number] [address] [place] [address] Oct, [facility] [address] [facility] [id number] [address] [place] [address] Oct, [facility] [address] [facility] [id number] [address] [place] [address] Sep, [facility] [address] [facility] [id number] [address] [place] [address] Aug, IMMUNIZATIONS No Known Immunizations SOCIAL HISTORY Never Assessed REASON FOR VISIT Hydrocodone PLAN OF CARE VITAL SIGNS MEDICATIONS Medication Instructions Dosage Frequency Start Date End Date Duration S akosua Hydrocodone-Acetaminophen 10-325 MG Orally every 8 hrs prn 1 /2-1 tablet as needed MAX 3 per day Jan, 28 days Active RESULTS No Results PROCEDURES No [...] reflux Medical History Irritable bowel Medical History [place], old Medical History CAD (coronary artery disease) Medical History Panlobular emphysema Medical History Hyperlipidemia, mixed Medical History Osteoarthritis Surgical History cholecystectomy Surgical History hysterectomy Surgical History lung resection Surgical History cardiac stent Surgical History hernia repair
[2020-02-24] MEDS ORDERED: LIDOCAINE/EPI 1%-1:100,000 (XYLOCAINE) 20ML ONE (09:29)
[2020-02-24] MEDS ORDERED: fentaNYL INJECTION 100 MCG/2 ML AMP ONE (09:33)
[2020-02-24] MEDS ORDERED: MIDAZOLAM 2 MG/2 ML (VERSED) VIAL ONE (09:33)
--- NOTE | 2020-02-24 09:46 | Progress Note-Pre Operative ---
Pre-Operative Progress Note H&P Reviewed The H&P was reviewed, patient examined and no changes noted. Date Seen by Provider: February 24, 2020 Time Seen by Provider: : Date H&P Reviewed: February 24, 2020 Time H&P Reviewed: : Pre-Operative Diagnosis: Chronic Right Abnormal Tonsil GRICELDA RODGERS MD February 24, 2020 09:46
[2020-02-24] MEDS ORDERED: proPOfol 200 MG/20 ML (DIPRIVAN) VIAL IV ONE (09:55)
[2020-02-24] MEDS ORDERED: DEXAMETHASONE 10 MG/ML (DECADRON) 1 ML VIAL ONE (09:55)
[2020-02-24] MEDS ORDERED: ROCURONIUM 10 MG/ML 5 ML SYRINGE IV ONE (09:55)
[2020-02-24] MEDS ORDERED: ONDANSETRON 4 MG/2 ML (SDV) Z0FRAN ONE (09:55)
[2020-02-24] MEDS ORDERED: GLYCOPYRROLATE 0.2 MG/ML (ROBINUL) 2 ML VIAL ONE (10:02)
[2020-02-24] MEDS ORDERED: NEOSTIGMINE 3 MG/3 ML VIAL ONE (10:02)
[2020-02-24] MEDS ORDERED: NS IV 1000 ML 1,000 ML IV SCH (10:14)
--- NOTE | 2020-02-24 10:14 | Progress Note-Post Operative ---
Post-Operative Progess Note Surgeon (s)/Immigration Judge (s) Surgeon GRICELDA RODGERS MD Immigration Judge n/a Pre-Operative Diagnosis Chronic Right Abnormal Tonsil Post-Operative Diagnosis same Post-Op Procedure Note Date of Procedure: February 24, 2020 Name of Procedure Performed: Right Tonsil Biopsies Description & Findings Description and Findings: n/a Anesthesia Type get Estimated Blood Loss minimal Packing none. Specimen(s) collected/removed right tonsil biopsies to path GRICELDA RODGERS MD February 24, 2020 10:13
[2020-02-24] MEDS ORDERED: APAP 325 MG/10.15 ML LIQ (TYLENOL) UDC PO PRN (10:15)
[2020-02-24] MEDS ORDERED: HYDROcodone/APAP 7.5MG-325 MG/15 ML (LORTAB) UDC PO PRN (10:15)
[2020-02-24] MEDS ORDERED: LIDOCAINE 2% VISCOUS 15 ML UDC PO PRN (10:15)
[2020-02-24] MEDS ORDERED: morphine INJ 10 MG/ML 1ML (SYR OR VIAL) ONE (10:43)
[2020-02-24] MEDS ORDERED: ONDANSETRON 4 MG/2 ML (SDV) Z0FRAN IVP PRN (11:00)
[2020-02-24] MEDS ORDERED: morphine INJ 10 MG/ML 1ML (SYR OR VIAL) IVP ONE (11:00)
[2020-02-24] MEDS ORDERED: SEVOFLURANE (ULTANE) 15 ML INHAL SOLN ONE (11:10)
[2020-02-24] MEDS ORDERED: 2% VISCOUS XYLOCAINE PO (12:54)
[2020-02-24] MEDS ORDERED: HYDR15SO8 PO (12:54)
[2020-02-24] MEDS ORDERED: AZIT200S47 PO (12:54)
--- NOTE | 2020-02-24 13:54 | Anesthesia-General Post-Op ---
General Patient Condition Mental Status/LOC: Same as Preop Cardiovascular: Satisfactory Nausea/Vomiting: Absent Respiratory: Satisfactory Pain: Controlled Complications: Absent Post Op Complications Complications None Follow Up Care/Instructions Patient Instructions None needed. Anesthesia/Patient Condition Patient Condition Patient is doing well, no complaints, stable vital signs, no apparent adverse anesthesia problems. No complications reported per nursing. JERRY UPTON CRNA February 24, 2020 13:54
== END 2020-02-24 13:25 | disposition home or self-care (01) ==
LOC: SDC 08:33
PROVIDERS: ATTEND Otolaryngology Otolaryngology/Facial Plastic Surgery
DX: J35.1 Hypertrophy of tonsils (principal); J36 Peritonsillar abscess; J44.9 Chronic obstructive pulmonary disease, unspecified; K21.9 Gastro-esophageal reflux disease without esophagitis; F17.210 Nicotine dependence, cigarettes, uncomplicated; Z79.82 Long term (current) use of aspirin; Z88.0 Allergy status to penicillin; Z79.891 Long term (current) use of opiate analgesic; Z79.899 Other long term (current) drug therapy

== ENCOUNTER 2020-03-07 10:37 | Day surgery (SDC) | payer MEDICAID ==
[~2020-03-07] VITALS: Ht 165 cm; Wt 68.1 kg
[2020-03-07] VITALS (9 sets, daily range): BP systolic 111–142; BP diastolic 63–83
[~2020-03-07 10:37] MED LIST changes: +2% VISCOUS XYLOCAINE PO; +AZIT200S47 PO; +HYDR15SO8 PO
[2020-03-07] MEDS ORDERED: NS IV 1000 ML 1,000 ML ONE (10:41)
[2020-03-07] MEDS ORDERED: HEParin (CATH LAB) 2,000 ML IV ONE (10:41)
[2020-03-07] MEDS ORDERED: LIDOCAINE 1% INJ 20 ML 20 ML VIAL ONE (10:41)
[2020-03-07] MEDS ORDERED: NS IV 1000 ML 1,000 ML IV SCH ×2 (10:45→14:12)
[2020-03-07 11:17] LABS: HEMOGLOBIN 14.2 G/DL (11.5-16.0); MEAN PLATELET VOLUME 9.7 FL (7.4-10.4); RED CELL DISTRIBUTION WIDTH 13.9 % (10.0-14.5); WHITE BLOOD COUNT 9.2 10^3/uL (4.3-11.0)
[2020-03-07] MEDS ORDERED: ASPI-983 PO (11:18)
--- NOTE | 2020-03-07 11:19 | Diagnostic Imaging Report ---
Indication: Chest pain Portable chest Heart size and pulmonary vascularity are normal. There is an ill-defined spiculated lesion in the right lower lung measuring approximately 1.8 cm in diameter. Lungs otherwise clear. There are no effusions or pneumothoraces. IMPRESSION: Irregular lesion right lower lung. Further evaluation with CT chest recommended. Dictated by: Dictated on workstation # [id number]
--- OUTSIDE RECORDS SUMMARY | 2020-03-07 11:25 | XMS REPORT | Continuity of Care Document ---
Demographics Preferred Language Unknown Marital Status Unknown Jew Affiliation Unknown Race Unknown Ethnic Group Unknown Author Organization Unknown Address Unknown Phone Unavailable Allergies Active Description Code Type Severity Reaction Onset Reported/Identified Relationship to Patient Clinical Status Yes PENICILLINS MODERATE OTHER Yes No Allergy Information Available [id number] Drug Allergy Unknown N/A 020 Yes Penicillins [id number] Drug Aller gy Severe ANAPHYLAXIS, [place] 02/13/2020 Medications Medication Packaging Start Date St op Date Route Dosage Sig IPRATROPIUM/ALBUTEROL INH SO LN (DUO-NEB INH SOLN) MLS 10/20/2018 10/20/2018 [id number]&[id number] Problems Date Dx Coded Attending Type Code Diagnosis Diagnosed By 09/10/1616 VISHAL NAYLOR, GRICELDA Velazquez Ot J36 PERITONSILLAR ABSCESS 09/10/1616 VISHAL NAYLOR, GRICELDA Velazquez Ot Z01.812 ENCOUNTER FOR PREPROCEDURAL LABORATORY E 09/10/1616 VISAHL NAYLOR, GRICELDA Velazquez Ot Z01.818 ENCOUNTER FOR OTHER PREPROCEDURAL EXAMIN 09/10/1616 VISHAL NAYLOR, GRICELDA Velazquez Ot Z11.59 ENCOUNTER FOR SCREENING FOR OTHER VIRAL 11/01/2017 RM GUADALUPE 401.0 MALIGNANT ESSENTIAL HYPERTENSION 11/01/2017 RM GUADALUPE 491.2 0 OBSTRUCTIVE CHRONIC BRONCHITIS, WITHOUT EXACERBATION 11/01/2017 RM GUADALUPE 723.1 CERVICALGIA 11/01/2017 RM GUADALUPE 786.5 CHEST PAIN 11/01/2017 RM GUADALUPE I10 ESSENTIAL (PRIMARY) HYPERTENSION 11/01/2017 RM GUADALUPE J44.9 CHRONIC OBSTRUCTIVE PULMONARY DISEASE, UNSPECIFIED 11/01/2017 RM GUADALUPE M54.2 CERVICALGIA 11/01/2017 RM GUADALUPE R07.8 9 OTHER CHEST PAIN 10/20/2018 [place] 306.4 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 2 MIXED HYPERLIPIDEMIA 02/16/2020 ROGER PRINCE MD Ot I10 ESSENTIAL (PRIMARY) HYPERTENSION 02/16/2020 ROGER PRINCE MD, Ot I25. 10 ATHSCL HEART DISEASE OF [place] CORONARY 02/16/2020 ROGER PRINCE MD Ot Z72. 0 TOBACCO USE 02/17/2020 GRICELDA RODGERS MD, Ot J36 PERITONSILLAR ABSCESS 02/17/2020 GRICELDA RODGERS MD Ot Z01.812 ENCOUNTER FOR PREPROCEDURAL LABORATORY E 02/17/2020 GRICELDA RODGERS MD, Ot Z01.818 ENCOUNTER FOR OTHER PREPROCEDURAL EXAMIN 02/29/2020 GRICELDA RODGERS MD Ot F17.210 NICOTINE DEPENDENCE, CIGARETTES, UNCOMPL 02/29/2020 GRICELDA RODGERS MD Ot J35 .1 HYPERTROPHY OF TONSILS 02/29/2020 GRICELDA RODGERS MD, Ot J36 PERITONSILLAR ABSCESS 02/29/2020 GRICELDA RODGERS MD, Ot J44 .9 CHRONIC OBSTRUCTIVE PULMONARY DISEASE, U 02/29/2020 GRICELDA RODGERS MD Ot K21 .9 GASTRO-ESOPHAGEAL REFLUX DISEASE WITHOUT 02/29/2020 GRICELDA RODGERS MD Ot Z79.82 SHIP FITTER (CURRENT) USE OF ASPIRIN 02/29/2020 GRICELDA RODGERS MD Ot Z79.891 CARE HOME (CURRENT) USE OF OPIATE ANALGE 02/29/2020 GRICELDA RODGERS MD, Ot Z79.899 OTHER CARE HOME (CURRENT) DRUG THERAPY 02/29/2020 GRICELDA RODGERS MD, Ot Z88 .0 ALLERGY STATUS TO PENICILLIN 03/07/2020 GRICELDA RODGERS MD, Ot F17.210 NICOTINE DEPENDENCE, CIGARETTES, UNCOMPL 03/07/2020 GRICELDA RODGERS MD, Ot J35 .1 HYPERTROPHY OF TONSILS 03/07/2020 GRICELDA RODGERS MD, Ot J36 PERITONSILLAR ABSCESS 03/07/2020 GRICELDA RODGERS MD, Ot J44 .9 CHRONIC OBSTRUCTIVE PULMONARY DISEASE, U 03/07/2020 GRICELDA RODGERS MD, Ot K21 .9 GASTRO-ESOPHAGEAL REFLUX DISEASE WITHOUT 03/07/2020 GRICELDA RODGERS MD, Ot Z79.82 SHIP FITTER (CURRENT) USE OF ASPIRIN 03/07/2020 GRICELDA RODGERS MD, Ot Z79.891 CARE HOME (CURRENT) USE OF OPIATE ANALGE 03/07/2020 GRICELDA RODGERS MD, Ot Z79.899 OTHER SHIP FITTER (CURRENT) DRUG THERAPY 03/07/2020 GRICELDA RODGERS MD, Ot Z88 .0 ALLERGY STATUS TO PENICILLIN Procedures There is no data. Results Test Result Range Thyroid Stimulating Hormone - 11/01/17 1 3:30 TSH 0.07 mIU/mL 0.32-5.00 Urinalysis - 11/01/17 14:33 Icotest N/A Negative Urine Volume Urine Volume Sufficient (10mL) Urine Yeast No Yeast present Urine-Appearance Clear Clear Urine-Bacteria Trace Urine-Bilirubin Negative Negative Urine-Blood Trace-lysed Negative Urine-Color Yellow Colorless-[place] ow Urine-Epithelial Cells 0-5/HPF Urine-Glucose Negative Negative Urine-Ketones Negative Negative Urine-Leukocytes Negative Negative Urine-Nitrite Negative Negative Urine-Other Urine Saved if Culture Need ed (48hrs from time of collection) Urine-pH 7.0 5-8.5 Urine-Protein Negative Negative Urine-RBC 0-2/HPF Urine-Specific [place] 1.010 1.000-1 .030 Urine-WBC 0-2/HPF Urobilinogen 0.2 E.U./dL 0.2-1.0 Cardiac Panel - 01/21/18 16:33 CK 65 U/L 26-174 CK-MB 0.9 ng/ml 0.0-9.2 Myoglobin 27.9 ng/ml 1.6-106.0 Troponin <0.020 ng/mL 0.0-0.4 EKG - 11/01/17 17:16 EKG Complete Test Code Change - 10/20/18 13:59 Test Code Change Note Aerobic Bacterial Culture - 10/20/18 13: 59 Aerobic Bacterial Culture Note Influenza - 10/20/18 13:59 Influenza NEGATIVE FOR A and B 0.00-0.0 0 LIPID PANEL - 12/24/18 15:33 CHOLESTEROL, TOTAL 206 mg/dL <200 HDL CHOLESTEROL 48 mg/dL >50 TRIGLYCERIDES 186 mg/dL <150 LDL-CHOLESTEROL 128 mg/dL (calc) NRG CHOL/HDLC RATIO 4.3 (calc) <5.0 NON HDL CHOLESTEROL 158 mg/dL (calc) <13 0 CMP - 12/24/18 15:33 GLUCOSE 91 mg/dL 65-99 UREA NITROGEN (BUN) 7 mg/dL 7-25 CREATININE 0.55 mg/dL 0.50-0.99 eGFR NON-AFR. SAM[place]IN[place] 101 mL/min/1.73m2 > OR = 60 eGFR [...] 7-25 CREATININE 0.59 mg/dL 0.50-0.99 eGFR NON-AFR. [place] 98 mL/min/1.73m2 > OR = 60 eGFR [...] 12 U/L 10-35 ALT 6 U/L 6-29 [id number] - 01/09/20 12:10 Serum or plasma urea nitrogen measurement (mass/volume ) 8 mg/dL 7-18 Serum or plasma creatinine measurement (mass/volume) 0.72 mg/dL 0.60-1.30 Serum or plasma urea nitrogen/creatinine mass ratio 11 NRG Serum or plasma creatinine measurement w ith calculation of estimated glomerular filtration rate > [facility] - 02/10/20 10:36 GLUCOSE 88 mg/dL 65-99 UREA NITROGEN (BUN) 8 mg/dL 7-25 CREATININE 0.71 mg/dL 0.50-0.99 eGFR NON-AFR. SAM[place]IN[place] 91 mL/min/1.73m2 > OR = 60 eGFR [...] Status Pt. Type Provider Facility Loc./Unit Complaint [id number] 10/26/2018 13:19:00 Document Registration [id number] 02/24/2020 08:33:00 13:25:00 DIS Outpatient GRICELDA RODGERS MD [facility] SDC RIGHT TONSILLAR ABSCESS [id number] 02/20/2020 08:54:00 16:17:00 DIS Outpatient GRICELDA RODGERS MD [facility] PREOP RIGHT TONSILLAR ABSCESS [id number] 02/15/2020 07:09:00 23:59:59 CLS Outpatient ROGER PRINCE MD [facility] CARD HYPERLIPIDEMIA,CAD,HTN, TOBACCO USER [id number] 02/13/2020 16:00:00 23:59:59 CLS Preadmit GRICELDA RODGERS MD [facility] RT COPD [id number] 01/09/2020 11:58:00 23:59:59 CLS Outpatient GRICELDA RODGERS MD [facility] RAD ABN RT TONSIL,RT THROAT PAIN [id number] 12/13/2019 10:59:00 23:59:59 CLS Outpatient GRICELDA RODGERS MD [facility] RAD RIGHT THYROID NODULE [id number] 06/28/2019 08:52:00 23:59:59 CLS Outpatient GRICELDA RODGERS MD [facility] RAD THYROID NODULES [id number] 12/16/2018 09:47:00 23:59:59 CLS Outpatient GRICELDA RODGERS MD [facility] RAD THYROID NODULE [id number] 10/18/2018 11:13:00 23:59:59 CLS Preadmit DAVID LAWSON MD [facility] RAD CANCER SCREENING [id number] 03/07/2020 10:37:[address] Outpatient ROGER PRINCE MD [facility] CATH ABN STRESS TEST [id number] 10/20/2018 13:36:00 10/20/2018 15:15: 00 DIS Outpatient [place] [id number] 11/01/2017 13:19:00 11/01/2017 17:20: 00 DIS Outpatient RM GUADALUPE [facility] ER 1761 10/20/2018 14:04:16 Document Registration [id number] 08/29/2019 10:00:00 08/29/2019 23:59: 59 [id number] 10:15:00 Document Registration [id number] 08/29/2019 09:45:00 Document Registration [id number] 04/26/2019 13:45:00 Document Registration [id number] 12/24/2018 16:15:00 Document Registration
[2020-03-07 11:31] LABS: INR 0.8 (0.8-1.4); PROTHROMBIN TIME PATIENT 11.7 SEC (12.2-14.7)
[2020-03-07 11:36] LABS: ALANINE AMINOTRANSFERASE < 6 U/L (0-55); ALBUMIN 4.1 GM/DL (3.2-4.5); ALKALINE PHOSPHATASE 75 U/L (40-136); BILIRUBIN,TOTAL 0.4 MG/DL (0.1-1.0); BUN/CREATININE RATIO 11; CALCIUM 9.2 MG/DL (8.5-10.1); CARBON DIOXIDE 26 MMOL/L (21-32); CHLORIDE 106 MMOL/L (98-107); CHOLESTEROL 195 MG/DL (< 200); CREATININE SERUM 0.75 MG/DL (0.60-1.30); GFR ESTIMATED > 60; GLUCOSE 100 MG/DL (70-105); HDL CHOLESTEROL 52 MG/DL (40-60); POTASSIUM 4.1 MMOL/L (3.6-5.0); SODIUM 140 MMOL/L (135-145); TOTAL PROTEIN 7.8 GM/DL (6.4-8.2); TRIGLYCERIDES 102 MG/DL (<150); VLDL CHOLESTEROL 20 MG/DL (5-40)
[2020-03-07] MEDS ORDERED: MIDAZOLAM 5 MG/5 ML (VERSED) VIAL ONE (13:15)
[2020-03-07] MEDS ORDERED: fentaNYL INJECTION 100 MCG/2 ML AMP ONE (13:15)
[2020-03-07] MEDS ORDERED: VERAPAMIL 5 MG/2 ML (CALAN) VIAL IV ONE (13:23)
[2020-03-07] MEDS ORDERED: HEParin 1000 UNIT/ML (10ML VIAL) FOR BOLUS ONE (13:23)
[2020-03-07] MEDS ORDERED: NITRO DRIP 25000 MCG/D5W 250 ML IV ONE (13:23)
--- NOTE | 2020-03-07 13:32 | Cardiac Procedure Note-CS/ASA ---
Pre-Procedure Note Pre-Op Procedure Note H&P Reviewed The H&P was reviewed, patient examined and no changes noted. Date H&P Reviewed: March 07, 2020 Time H&P Reviewed: 13:32 Conscious Sedation Pre-Proced Time 13:32 ASA Score 3 For ASA 3 and 4: Consider anesthesia and medical clearance. Also, for patients with a history of failed moderate sedation consider anesthesia. Airway Lungs Heart ASA score ASA 1: a normal healthy patient ASA 2: a patient with a mild systemic disease (mid diabetes, controlled hypertension, obesity x ASA 3: a patient with a severe systemic disease that limits activity (angina, COPD, prior Myocardial infarction) ASA 4: a patient with an incapacitating disease that is a constant threat to life (CHF, renal failure) ASA 5: a moribund patient not expected to survive 24 hrs. (ruptured aneurysm) ASA 6: a declared brain- patient whose organs are being harvested. For emergent operations, add the letter E after the classification Mallampati Classification Grade 3 Sedation Plan Analgesia, Amnesia, Plan communicated to team members, Discussed options with patient/fam, Discussed risks with patient/fam The patient is an appropriate candidate to undergo the planned procedure, sedation, and anesthesia. The patient immediately re-assessed prior to indication. ROGER PRINCE MD March 07, 2020 13:32
[2020-03-07] MEDS ORDERED: ATOR10TA PO (14:15)
--- NOTE | 2020-03-07 14:15 | Discharge Inst-Post CATH ---
Discharge Inst-CATH/EP Problems Reviewed?: Yes Post Cardiac Cath/EP D/C Inst Follow Up/Plan Appointment with Dr. Paulson's office in 4 weeks <b>CARDIAC CATH/EP PROCEDURE DISCHARGE INSTRUCTIONS</b> ACTIVITY * Go Home directly and rest. * Limit activity of the leg (or wrist if it was used) for 7 days including aerobics, swimming, jogging, bicycling, etc. * Restrict stair-climbing for 7 days if possible, if not, climb up with your non-cath leg, then bring together on the same step. * Avoid lifting, pushing, pulling or excessive movement of the affected extremity for 7 days. * Customary sexual activity may be resumed after 2 days-use caution not to use a position that strains or causes pain to the affected extremity. * No driving for 24 hours. * NO SMOKING. * Avoid straining for bowel movements for 7 days. * Gentle walking on level ground is allowed. * Returning to work will depend on the type of procedure and the results. Your doctor will discuss this with you. CALL YOUR DOCTOR FOR ANY OF THE FOLLOWING: *If bleeding from the puncture site occurs- Apply gentle pressure to site with clean cloth and call your doctor or EMS. * If a knot or lump forms under the skin, increases in size, or causes pain. * If bruising appears to be worsening or moving further down your leg instead of disappearing. * Temperature above 101 F. CARE OF YOUR GROIN INCISION; * Bruising or purple discoloration of the skin near the puncture site is common. * You may shower only, no bathtub bathing for 5 days. Be careful to avoid slipping as your leg may feel stiff. * If a closure device was used on your femoral artery, please see the attached guide regarding care of the device and your leg. * Leave dressing on FOR 24 hours. CARE OF YOUR WRIST INCISION; * Bruising or purple discoloration of the skin near the puncture site is common. * You may shower. * DO NOT submerge wrist. * Leave dressing on FOR 24 hours. ROGER PAULSON MD March 07, 2020 14:15
--- NOTE | 2020-03-07 14:20 | Cardiac Cath Report ---
Cardiac Cath Report Physician (s)/Ethnoarchaeology Professor (s) Physician ROGER PRINCE MD Pre-Procedure Diagnosis Pre-Procedure Diagnosis: Coronary artery disease Post-Procedure Note Procedure Start Date: March 07, 2020 Name of Procedure: Left heart catheterization Findings/Procedure Note PROCEDURE NOTE: 64-year-old lady with history of coronary artery disease, stenting, had an abnormal stress test, scheduled for cardiac catheterization possible PTCA. After explaining the procedure to the patient, all pros and cons were explained, all questions were answered. The patient signed the consent and then she was placed on the cardiac catheterization laboratory. Groin was prepped SL fashion local anesthesia was used. Sheath placed in the right radial artery, [place] catheter was advanced to the left ventricular cavity, pressure was measured, pullback LV to aorta was done, intubated the coronary system and selective angiogram was done At the end of the procedure the sheath was removed. Vascular band was used FINDINGS: Hemodynamics LV 102/11, end-diastolic pressure of 11 Aorta 118/78 mean of 83 ANATOMY: Left Main is free of obstructive disease Left Anterior Descending is very tortuous artery, large stent at the proximal portion is patent, small vessel disease Left Circumflex is tortuous artery with mild disease nonobstructive disease Right Coronory Artery 40-50 percent stenosis of the midright coronary artery nonobstructive disease LV Gram was not done, pressure was measured CONCLUSION: 1. Patent stent in the proximal/ostial LAD with very tortuous LAD with mild disease, small vessel disease 2. 40-50 percent stenosis in the midright coronary artery, nonobstructive disease 3. Normal left ventricular end-diastolic pressure DISCUSSION AND RECOMMENDATION: medical therapy is recommended, adding Lipitor to current medication monitor blood pressure lipids Anesthesia Type: Conscious Sedation Estimated blood loss (mL): 5 ml Contrast Amount: 45 ml Total Radiation Dose: 144 mGy Post-Procedure Diagnosis Post-operative diagnosis: Chest pain Coronary artery disease Hypertension Hyperlipidemia ROGER PRINCE MD March 07, 2020 14:20
== END 2020-03-07 17:20 | disposition home or self-care (01) ==
LOC: CATH 10:37
PROVIDERS: ATTEND Internal Medicine Cardiovascular Disease
DX: I25.10 Atherosclerotic heart disease of native coronary artery without angina pectoris (principal); I65.29 Occlusion and stenosis of unspecified carotid artery; I10 Essential (primary) hypertension; E78.2 Mixed hyperlipidemia; J44.9 Chronic obstructive pulmonary disease, unspecified; F17.210 Nicotine dependence, cigarettes, uncomplicated; Z88.0 Allergy status to penicillin; Z79.899 Other long term (current) drug therapy; Z83.3 Family history of diabetes mellitus; Z80.9 Family history of malignant neoplasm, unspecified
CPT/HCPCS: 36415; 71045; 80053; 80061; 85027; 85610; 85730; 87081; 93458